=== PATIENT | female | born 1935 | race African-American/Black ===

== ENCOUNTER → 2016-07-03 | Day surgery (SDC) | payer MEDICARE, BC ==
--- NOTE | 2016-06-30 15:08 | Pre-op HX & Phy Repo 2 SIG ---
DATE OF ADMISSION: 07/03/2016 DATE OF SURGERY: 07/03/2016. PREOPERATIVE DIAGNOSIS: Vitreomacular traction syndrome, right eye with impending macular hole. BRIEF NOTE: This is the second [place] admission for the patient who is very nice an 80-year-old lady with a significant vitreomacular traction on the right eye. Her past ocular history is remarkable for a similar problem on the left eye that was successfully operated in October of 2014. She has had cataract surgery on the left eye in April of this year and notes improved vision. The right eye has shown progressive diminution in vision and scans have revealed significant traction with a central cyst in the retina. PAST MEDICAL HISTORY: Remarkable for hypertension and lupus. MEDICATIONS: She is currently on lisinopril, Premarin, nifedipine, metronidazole, Lyrica, and omeprazole. ALLERGIES: She is allergic to penicillin. SOCIAL HISTORY: She does not smoke or drink. PHYSICAL EXAMINATION: Best vision at the time of the visit was 20/60, + 2 in the right eye and 20/50 -2 on the left. Pressures were 14 and 15. The anterior segments were reasonably quiet. There was a mild nuclear cataract on the right. The left showed a posterior chamber lens in good position. Fundus examination of the right eye showed a significant area of vitreomacular traction, centrally with a central retinal cyst. The left showed a mild epiretinal membrane. Traction had been released. There were treated retinally in the periphery at 1 o'clock, 2 o'clock, and 3 o'clock. General physical examination was done by the patient's own internists Dr. Morales Mathur. ASSESSMENT: Vitreomacular traction, right eye. The plan is to perform a pars plana vitrectomy with release of the vitreomacular traction on the right and injection of Kenalog. The risks and benefits of surgery gone over with the patient including potential infection, hemorrhage, retinal tear formation, retinal detachment, cataract progression, remote possibility of loss of the eye. The risk of anesthesia was discussed. The patient understands and consents to the surgery to be performed on Sunday. Greg Rashid M.D. DR: Joel JOB#: [id number] CC:
[2016-07-03] VITALS (9 sets, daily range): BP systolic 131–146; BP diastolic 73–91
[~2016-07-03] VITALS: Ht 177.8 cm; Wt 68.0 kg
[~2016-07-03] MED LIST: Atropine Sulfate 3.5gm Oint ONE; BSS 15ml BTL ONE; BSS 500ml btl ONE; Bupivacaine 0.75% 30ml vial INJ ONE; Cyclopentolate 1% Opth Sol ONE; Dexamethasone 4mg/ml vial ONE; EPINEPHrine 1mg/1ml Amp ONE; Flurbiprofen 0.03% Opth Sol 2.5ml ONE; Gatifloxacin Opth Solution 0.5% RIGHT EYE SCH; Gentamicin 0.3% Opth Soln 5ml RIGHT EYE ONE; Indocyanine Green 25mg Inj INJ ONE; Kenalog-10 5ml Inj ONE; Kenalog-40 1ml Vial ONE; LIDODERM700 M1 TOPIC; LISINOPRIL2.5 MG ORAL; LR 1000ml 1,000 ML IV SCH; LR 1000ml 1,000 ML IVLG SCH; LYRICA75 M1 ORAL; Lidocaine 2% MPF 5ml Vial INJ ONE; Maxitrol Opth Oint 3.5gm ONE; NIFEDIPINE ER60 M3 ORAL; NS Irrig 1000ml ONE; PREMARIN0.3 MG ORAL; Phenylephrine 2.5% Op Soln ONE; Povidone-Iodine 5% opth solution ONE; Pred Forte 1% Opth Susp 1ml RIGHT EYE ONE; RESTORIL15 MG ORAL; Sodium Chloride 10ml vial INJ ONE; Sodium Hyaluronate 10 mg/ml 0.85ml ONE; Sterile Water Irrig 1000ml IRRIG ONE; TRAMADOL HCL50 MG ORAL; Tetracaine 0.5% Opth Soln ONE; fentaNYL 100 mcg/2 mL IV PRN
[2016-07-03] MEDS: Phenylephrine 2.5% Op Soln RIGHT EYE SCH ×3 (06:18→06:46)
[2016-07-03] MEDS: Cyclopentolate 1% Opth Sol RIGHT EYE SCH ×3 (06:18→06:46)
[2016-07-03] MEDS: Flurbiprofen 0.03% Opth Sol 2.5ml RIGHT EYE SCH ×3 (06:19→06:47)
--- NOTE | 2016-07-03 07:48 | Pre-Procedure Note/Attestation ---
Pre-Procedure Note/Attestation Complete Prior to Procedure Planned Procedure: right Procedure Narrative: PPV, membrane peel, Kenalog, possible endolaser R eye Indications for Procedure Pre-Operative Diagnosis: Vitreomacular traction syndrome R eye Attestation I attest that I discussed the nature of the procedure; its benefits; risks and complications; and alternatives (and the risks and benefits of such alternatives ), prior to the procedure, with the patient (or the patient's legal truck sales representative). I attest that, if there was a reasonable possibility of needing a blood transfusion, the patient (or the patient's legal truck sales representative) was given the [facility] standardized written summary, pursuant to the [place] Blood Safety Act ([place] Health and Safety Code # 1645, as amended). I attest that I re-evaluated the patient just prior to the surgery and that there has been no change in the patient's H&P, except as documented below: LISA MIGUEL Jul 03, 2016 07:48
--- NOTE | 2016-07-03 08:10 | Anethesia Preoperative Eval ---
Anesthesia Pre-op PMH/ROS General Date of Evaluation: Jul 03, 2016 Time of Evaluation: 07:30 Anesthesiologist: Sena ASA Score: ASA 3 Mallampati Score Class I : Soft palate, uvula, fauces, pillars visible Class II: Soft palate, uvula, fauces visible Class III: Soft palate, base of uvula visible Class IV: Only hard plate visible Mallampati Classification: Class II Surgeon: Gay Diagnosis: Macular pucker right eye Surgical Procedure: Vitrectomy, membrane peeling Family History: no anesthesia problems Allergies: Coded Allergies: CIPROFLOXACIN (Unverified Allergy, Intermediate, swelling of lips, 11/04/14 ) PENICILLINS (Unverified Allergy, Intermediate, hives, 11/04/14) Uncoded Allergies: mycins (Allergy, Severe, 07/03/16) lips and tongue swelling Medications: see eMAR Past Medical History Cardiovascular: Reports: HTN, arrhythmia - AFIB Pulmonary: Denies: COPD, DIANDRA, asthma, other Gastrointestinal/Genitourinary: Reports: GERD, Denies: CRI, ESRD, other Neurologic/Psychiatric: Reports: depression/anxiety, Denies: CVA, TIA, dementia, other Endocrine: Denies: DM, hypothyroidism, other, steroids HEENT: Reports: cataract (L) Hematology/Immune: Denies: DVT, anemia, bleeding disorder, other Musculoskeletal/Integumentary: Denies: DDD, DJD, OA, RA, edema, other PMH Narrative: HTN, AFIB, GERD, depression PSxH Narrative: ARVIND, cataract Anesthesia Pre-op Phys. Exam Physician Exam Last Vital Signs Date Time Temp Pulse Resp B/P Pulse Ox O2 Delivery O2 Flow Rate FiO2 07/03/16 06:16 97.7 88 20 140/85 99 Room Air Constitutional: NAD Neurologic: CN 2-12 intact Cardiovascular: RRR, no M/R/G Respiratory: CTA Gastrointestinal: S/NT/ND Airway Exam Mallampati Score: Class II MO: full ROM: full Teeth: intact Anesthesia Pre-op A/P Labs WNL Studies Pre-op Studies: EKG - AFIB, possible lateral ischemia Risk Assessment & Plan Assessment: Macular pucker Plan: NAC, TIVA Status Change Before Surgery: No Pre-Antibiotics Drug: None BRADEN BORRERO M.D. Jul 03, 2016 08:10
--- NOTE | 2016-07-03 08:11 | Immediate Post-Op Evaluation ---
Immediate Post-Op Evalulation Immediate Post-Op Evalulation Procedure: Vitrectomy, membrane peeling right eye Date of Evaluation: Jul 03, 2016 Time of Evaluation: 08:40 IV Fluids: 475 Blood Pressure Systolic: 140 Blood Pressure Diastolic: 89 Pulse Rate: 76 Respiratory Rate: 14 O2 Sat by Pulse Oximetry: 98 Temperature (Fahrenheit): 97.0 Pain Score (1-10): 0 Nausea: No Vomiting: No Complications No complication Patient Status: awake, patent, none Hydration Status: adequate Drug: None BRADEN BORRERO M.D. Jul 03, 2016 08:11
--- NOTE | 2016-07-03 08:35 | Brief Operative Note ---
Immediate Post Operative Note Operative Note Chief Complaint: Blurred central vision R eye Pre-op Diagnosis: Vitreomacular traction syndrome R eye Procedure: PPV, Kenalog injection, Endolaser 224 spots, Kenalog injection R eye Post-op Diagnosis: same as pre-op plus - Superficial retinal heme----suspect micro-tear Surgeon: joselin Anesthesiologist: Donna Anesthesia: MAC Specimen: none Complications: none Condition: stable Estimated Blood Loss: none Drains: none Implant(s) used?: No LISA MIGUEL Jul 03, 2016 08:35
--- NOTE | 2016-07-03 08:36 | 48 Hour Post Anesthesia Eval ---
Post Anesthesia Evaluation Procedure: Vitrectomy, membrane peeling right eye Date of Evaluation: Jul 03, 2016 Time of Evaluation: 09:10 Blood Pressure Systolic: 142 0: 88 Pulse Rate: 74 Respiratory Rate: 13 O2 Sat by Pulse Oximetry: 100 Airway: patent Nausea: No Vomiting: No Pain Intensity: 0 Hydration Status: adequate Cardiopulmonary Status: Stable Mental Status/LOC: patient returned to baseline Follow-up Care/Observations: As per surgery Post-Anesthesia Complications: No anesthetic complication Follow-up care needed: N/A BRADEN BORRERO M.D. Jul 03, 2016 08:36
--- NOTE | 2016-07-03 20:38 | Operative Note - Dictated ---
DATE OF OPERATION: 07/03/2016 PREOPERATIVE DIAGNOSIS: Vitreomacular traction syndrome, right eye. POSTOPERATIVE DIAGNOSIS: Vitreomacular traction syndrome, right eye with small peripheral hemorrhage, right eye. SURGEON: Greg Rashid M.D. MECHANICAL EXPERT: None. ANESTHESIA: Local sedation. ANESTHESIOLOGIST: Dr. Thompson. JUSTIFICATION FOR SURGERY: This 80-year-old lady developed a blurred central vision in the right eye and was found to have significant vitreomacular traction syndrome with a central retinal cyst. BRIEF NOTE: The patient was brought to the operating room, placed on operating room table in supine position. After a time-out was performed and agreed upon by the staff, an initial monitoring secured by Dr. Thompson, retrobulbar and Van Lint blocks was given the standard way. When the blocks taken effect, she was prepped and draped in normal manner. A lid speculum was inserted into the right eye. Using a 23-gauge trocar system, cannulas were placed in all except infranasal quadrant. Infusion secured inferotemporally. Vitrectomy was begun posterior to the lens taking care to avoid contact. A central core vitrectomy was done followed by peripheral vitrectomy leaving a small vitreous skirt. Kenalog was used to stain the remaining vitreous. Posterior hyaloid was seen to be attaching to the central retina and around the optic nerve. This was gently engaged with suction and elevated. The remnants were removed. The small residual remnant on the surface of the nerve was engaged with intra-ocular forceps and removed, leaving the posterior pole clean. Plaque of hemorrhage was seen superiorly above the equator and nasal to the optic nerve. The Endolaser brought to the eye and a power of 0.3 hartmann duration 0.2 seconds. A total of 224 lesions were applied surrounding these spots. Careful scleral depression revealed no peripheral breaks, tears, or detachments. The instruments were removed from the eye and the wounds were noted to be self-sealing. Subconjunctival gentamicin and Decadron were injected inferiorly and Maxitrol and atropine ointments were instilled. The eye was patched and shielded and the patient taken to recovery in excellent condition. No complications. Greg Rashid M.D. DR: SERG JOB#: [id number] CC: Greg Rashid M.D.
== END | disposition home or self-care (01) ==
LOC: SUR 05:28
DX: H43.821 Vitreomacular adhesion, right eye (principal); H35.61 Retinal hemorrhage, right eye; H33.191 Other retinoschisis and retinal cysts, right eye; M32.12 Pericarditis in systemic lupus erythematosus; I48.91 Unspecified atrial fibrillation; I10 Essential (primary) hypertension; K21.9 Gastro-esophageal reflux disease without esophagitis; F32.9 Major depressive disorder, single episode, unspecified; F41.9 Anxiety disorder, unspecified; Z90.710 Acquired absence of both cervix and uterus; Z88.3 Allergy status to other anti-infective agents; Z88.0 Allergy status to penicillin
CPT/HCPCS: 67039; J0171; J1100; J3301; J3470; J3490; 94003; 94150